=== PATIENT | male | born 1945 | race Caucasian/White ===

== ENCOUNTER 2016-07-31 23:00 | Emergency (ER) | payer MEDICARE, BC ==
[2016-08-01 04:51] LABS: ASCORBIC ACID (UR NOT ORDER) 20 (NEG); BILIRUBIN, URINE NEGATIVE (NEG); ER URINALYSIS TAT 0 Hrs 22 Mins; KETONE, URINE TRACE MG/DL (NEG); LEUKOCYTE ESTERASE(NOT OR NEG (NEG); NITRITE (URINE) NEG (NEG); WBC (NOT ORDERED) (RFLEX) 1 (0-5)
[2016-08-01 04:52] LABS: BASOPHILS 0.2 %; BASOPHILS ABSOLUTE 0.02 10/3/uL (0.0-0.16); EOSINOPHILS 0.2 %; EOSINOPHILS ABSOLUTE 0.02 10/3/uL (0.0-0.53); HEMATOCRIT 40.9 % (40.0-51.0); IMMATURE GRANULOCYTES 0.3 %; IMMATURE GRANULOCYTES ABSOLUTE 0.03 10/3/uL (0.0-0.11); LYMPHOCYTES 12.8 %; LYMPHOCYTES ABSOLUTE 1.34 10/3/uL (0.67-4.30); MEAN CORPUS HGB CONC 34.2 g/dL (32.0-36.0); MEAN CORPUSCULAR HEMOGLOB 30.2 pg (26.0-34.0); MEAN CORPUSCULAR VOLUME 88.1 fL (80-100); MEAN PLATELET VOLUME 11.2 fL (9.2-13.0); MONOCYTES 5.1 %; MONOCYTES ABSOLUTE 0.53 10/3/uL (0.21-1.20); NEUTROPHILS 81.4 %; NEUTROPHILS ABSOLUTE 8.49 10/3/uL (2.02-8.40); PLATELET COUNT 231 10/3/uL (150-400); RBC DISTRIBUTION WIDTH 12.9 % (12.0-16.0); RED CELL COUNT 4.64 10/6/uL (4.7-6.1); WHITE BLOOD CELLS 10.4 10/3/uL (4.5-10.5)
[2016-08-01 04:58] LABS: ER CBC TAT 0 Hrs 08 Mins; MANUAL DIFF NO %
[2016-08-01 05:05] LABS: CHLORIDE, SERUM 103 MMOL/L (96-112); CO2 (CARBON DIOXIDE) 24 MMOL/L (24-34); CREATININE 1.25 MG/DL (0.70-1.30); GFR AFRICAN AMERICAN 67 ML/MIN (>=60); GFR NON AFRICAN AMERICAN 58 ML/MIN (>=60); POTASSIUM, SERUM 4.3 MMOL/L (3.5-5.3); SODIUM, SERUM 139 MMOL/L (135-148)
[2016-08-01 05:06] LABS: BUN (BLOOD UREA NITROGEN) 28 MG/DL (6-23); CALCIUM, SERUM 9.1 MG/DL (8.5-10.4); GLUCOSE, SERUM 155 MG/DL (60-99)
[2016-09-11] MEDS ORDERED: PRAVAC PO (13:23)
[2016-09-11] MEDS ORDERED: Z300 PO (13:24)
[2016-09-11] MEDS ORDERED: ALLEGRA180 PO (13:40)
[2016-09-11] MEDS ORDERED: FISH-EPA1000 MG PO (13:40)
[2016-09-11] MEDS ORDERED: NASACORTAQ NAS (13:40)
[2017-02-08] MEDS ORDERED: MULTIPLE VIT PO (08:17)
== END 2016-08-01 06:21 | disposition home or self-care (01) ==
LOC: ER 23:00
PROVIDERS: Nurse Practitioner Acute Care
PROC: 0T2BX0Z Change Drainage Device in Bladder, External Approach (ICD-10-PCS; principal; 2016-07-31)
DX: R33.9 Retention of urine, unspecified (principal)
CPT/HCPCS: 80048; 81001; 85025; 99283

== ENCOUNTER 2016-09-13 09:14 | Inpatient (IN) | payer MEDICARE, BC ==
[2016-09-11 15:26] LABS: BASOPHILS 0.2 %; BASOPHILS ABSOLUTE 0.02 10/3/uL (0.0-0.16); EOSINOPHILS 3.3 %; EOSINOPHILS ABSOLUTE 0.28 10/3/uL (0.0-0.53); HEMATOCRIT 41.4 % (40.0-51.0); HEMOGLOBIN 14.1 g/dL (13.6-17.8); IMMATURE GRANULOCYTES 0.6 %; IMMATURE GRANULOCYTES ABSOLUTE 0.05 10/3/uL (0.0-0.11); LYMPHOCYTES 26.1 %; LYMPHOCYTES ABSOLUTE 2.23 10/3/uL (0.67-4.30); MEAN CORPUS HGB CONC 34.1 g/dL (32.0-36.0); MEAN CORPUSCULAR HEMOGLOB 30.1 pg (26.0-34.0); MEAN CORPUSCULAR VOLUME 88.3 fL (80-100); MEAN PLATELET VOLUME 12.2 fL (9.2-13.0); MONOCYTES 6.9 %; MONOCYTES ABSOLUTE 0.59 10/3/uL (0.21-1.20); NEUTROPHILS 62.9 %; NEUTROPHILS ABSOLUTE 5.37 10/3/uL (2.02-8.40); PLATELET COUNT 213 10/3/uL (150-400); RBC DISTRIBUTION WIDTH 13.6 % (12.0-16.0); RED CELL COUNT 4.69 10/6/uL (4.7-6.1); WHITE BLOOD CELLS 8.5 10/3/uL (4.5-10.5)
[2016-09-11 15:27] LABS: MANUAL DIFF NO %
[2016-09-11 15:37] LABS: INTERNATIONAL NORMAL RATI 1.1 UNITS (-); PARTIAL THROMBO TIME 29.8 SEC (22.5-37.2); PROTIME (NOT ORD) 13.6 SEC (12.0-14.5)
[2016-09-11 15:38] LABS: CALCIUM, SERUM 9.1 MG/DL (8.5-10.4); CHLORIDE, SERUM 106 MMOL/L (96-112); GFR AFRICAN AMERICAN 39 ML/MIN (>=60); GFR NON AFRICAN AMERICAN 34 ML/MIN (>=60); GLUCOSE, SERUM 126 MG/DL (60-99); POTASSIUM, SERUM 4.2 MMOL/L (3.5-5.3); SODIUM, SERUM 142 MMOL/L (135-148)
[2016-09-11 15:39] LABS: BUN (BLOOD UREA NITROGEN) 24 MG/DL (6-23); CO2 (CARBON DIOXIDE) 30 MMOL/L (24-34); CREATININE 1.95 MG/DL (0.70-1.30)
--- NOTE | ~2016-09-13 | OP ---
Record Of Operation [facility] [address] [place]. [address] NAME: STEPHANIE RODRIGUEZ : 47 STATUS : ADM IN PAT#: [id number] AGE: 71 ADM/REG DATE : 09/13/16 MR#: [id number] REPORT SERV DATE: 09/13/16 DICTATED BY: HECTOR WINCHESTER DATE: 09/13/16 REPORT STATUS : Draft TRANSCRIBED BY: MODL DATE: 09/13/16 DATE OF PROCEDURE: 09/13/2016 PREOPERATIVE DIAGNOSES: Urinary retention and massive BPH. POSTOPERATIVE DIAGNOSES: Urinary retention and massive BPH. PROCEDURES: Laparoscopic robot-assisted simple prostatectomy. SURGEON: Hector Winchester M.D. DOUGHNUT BATTER MIXER: Johnnie Shah. ANESTHESIA: General and local. ESTIMATED BLOOD LOSS: 150 mL. FLUID REPLACEMENT: 3 L of crystalloid. DRAINS: 15 mm Jose drain in the prevesical space and a 24-Maori three-way Winchester catheter with 45 mL of sterile water inflating the catheter balloon and connected to normal saline continuous bladder irrigation. INDICATIONS: A 71-year-old male with massive BPH and urinary retention, failing multiple voiding trials. FINDINGS: Enlarged prostate with at least two abscesses/purulences. TECHNIQUE: The patient was identified, brought to the operating room, administered general anesthetic agent by the Anesthesia Service, and intubated. He was positioned in dorsal lithotomy position. His Winchester catheter removed, and the entire lower abdomen had been clipped and then the entire abdomen, penis, groin, scrotum, and perineum were prepped and draped in the usual sterile fashion. All laparoscopic port sites were first infiltrated with 0.5% Marcaine plain. A 3 cm skin incision was made above the umbilicus and carried down through the subcutaneous tissue and the rectus fascia. Holding sutures were placed in the rectus fascia, and the fascia was elevated. It was incised transversely with an 11- blade scalpel. The underlying peritoneum was identified and opened sharply. A balloon trocar was placed into the peritoneal space, and a pneumoperitoneum was created by insufflating carbon dioxide. The abdominal pressure was then raised to 15 mmHg, and the patient was placed in steep Trendelenburg. Three robot arm ports and two surgical supply assistant ports were placed under direct vision. Once the ports were in position, da Dina robot was brought to the table and mated to the ports. The patient was noted to have bilateral indirect and a left direct inguinal hernia. I had to reduce the hernia sac on the left side. This was done with sharp dissection. I then clipped the direct sac with locking clips. The sigmoid colon was dissected off the lateral pelvic side wall. Record Of Operation [facility] [address] [facility] [place]. [id number] NAME: STEPHANIE RODRIGUEZ : 47 STATUS : ADM IN PAT#: [id number] AGE: 71 ADM/REG DATE : 09/13/16 MR#: [id number] REPORT SERV DATE: 09/13/16 DICTATED BY: HECTOR WINCHESTER DATE: 09/13/16 REPORT STATUS : Draft TRANSCRIBED BY: MAGDALENA DATE: 09/13/16 The median umbilical ligaments and urachus were divided near the umbilicus, and swept out in the space of Retzius. The perineum was opened just lateral to the median umbilical ligaments on each side all the way to the vasa deferentia bilaterally. An anterior cystotomy was made. A 16-Maori Winchester catheter was then passed in the bladder. The anterior cystotomy was made. The bladder was opened and holding sutures were placed in the cut edges of the bladder. I exposed the large intravesical prostate, and I observed the ureteral orifices. I then turned the Bovie cautery settings up high on the cutting scissors and scored the urothelium circumferentially around the bladder neck being careful to avoid the ureteral orifices. I then sharply dissected down to the capsule of the prostate. I then mobilized the adenoma circumferentially. Anteriorly on both the left and right side, I countered some cysts that contains very purulent-type material. This was copiously irrigated with saline. I used holding suture on the adenoma and extended my dissection from the intravesical adenoma all the way down towards the apex of the prostate. I then came across the urethra and delivered the specimen out. Several smaller adenomatous-type specimens were removed from inside the prostatic fossa. These were all placed into a specimen retrieval bag and held for later retrieval. I lowered the abdominal pressure down to 7 mmHg and irrigated the prostatic fossa copiously. I placed a muduom-yl-hswfe 3-0 PDS sutures along the ventral side of the anterior capsule of the prostate. This was for prophylactic hemostasis. I also placed a mbvafw-lm-rvdva 3-0 PDS near the posterior pedicle at the 7 o'clock position on the left side. The right side did not have any bleeding. Once fastidious hemostasis was achieved, I irrigated the fossa once again and placed a 24-Maori three-way Winchester catheter into the prostatic fossa. Initially, I placed 15 mL of sterile water into the catheter balloon, later filled with a total of 45 mL of sterile water. The bladder was irrigated copiously and sucked dry. I then closed the urothelium with running 3-0 V-Loc and closed the detrusor layer with a running 2-0 V-Loc. When completed, I filled the bladder with 240 mL of saline. It held without extravasation. I then drained the bladder connected to normal saline continuous for bladder irrigation. The instrument was taken out of the robot arm port and a 15 mm Jose drain was placed through that port, left in the prevesical space. I then undocked the da Dina robot, transferred the string of the specimen bag out through the umbilical port. The surgical supply assistant 12 mm port was removed and the fascia was closed with a Cornelius-Alfredo endoscopic closure system. The patient was taken out of Trendelenburg. All other ports were removed under low pressure. No port site bleeding was noted. I extended my transverse incision the fascia about 1 cm each direction and delivered the specimen out through the wound. I closed the fascia with wyajej-kf-hblef 0 Vicryl sutures. The subcutaneous tissue of all ports were irrigated and closed with 3-0 Vicryl. The skin of all ports closed with 4-0 Monocryl. Dressings were applied. The catheter was secured. The patient was awakened and taken to recovery unit in stable and satisfactory condition. Record Of Operation [facility] [address] [place]. [address] NAME: STEPHANIE RODRIGUEZ : 47 STATUS : ADM IN PAT#: [id number] AGE: 71 ADM/REG DATE : 09/13/16 MR#: [id number] REPORT SERV DATE: 09/13/16 DICTATED BY: HECTOR WINCHESTER DATE: 09/13/16 REPORT STATUS : Draft TRANSCRIBED BY: MODL DATE: 09/13/16 PF/MAGDALENA Hector Winchester M.D. / [id number] CC: Hector Winchester M.D.
--- NOTE | ~2016-09-13 | HP ---
History And Physical [address] [place]. [address] NAME: STEPHANIE MATTHEWS : 47 STATUS : PRE IN [facility]#: [id number] AGE: 71 ADM/REG DATE : MR#: [id number] REPORT SERV DATE: 09/12/16 DICTATED BY: HECTOR WINCHESTER DATE: 09/12/16 REPORT STATUS : Draft TRANSCRIBED BY: MODL DATE: 09/12/16 DATE OF ADMISSION: 09/13/2016 CHIEF COMPLAINT: Urinary retention. HISTORY OF PRESENT ILLNESS: Mr. Matthews is a 71-year-old white male who has had urinary retention for approximately two months. He had a long history of BPH that culminated in his retention. He has been treated with a Winchester catheter and has failed multiple voiding trials. MRI of the prostate previously revealed a gland measuring 160 mL. He has had numerous biopsies of the prostate, which were benign. He has consented to undergo a laparoscopic robot-assisted simple prostatectomy. He will be admitted after that procedure. The patient states he is sexually active to a certain degree. PAST MEDICAL HISTORY: Includes a renal cell carcinoma and BPH. PAST SURGICAL HISTORY: Left radical nephrectomy, tonsillectomy, eye surgery, and skin lesions removed. MEDICATIONS: Allopurinol, Kendal, pravastatin, and Nasacort. ALLERGIES: NO KNOWN DRUG ALLERGIES. SOCIAL HISTORY: Negative for tobacco use. He reports moderate alcohol use. REVIEW OF SYSTEMS: See nursing questionnaire. PHYSICAL EXAMINATION: GENERAL: Shows a well-developed, well-nourished white male in no acute distress. HEENT: Revealed he has a certain amount of anxiety. His sclerae are anicteric. NECK: Supple. LUNGS: Clear. HEART: Regular rate and rhythm. ABDOMEN: Soft and nontender. : Penis has a catheter in place. Testes descended and nontender. Prostate is large and smooth. No nodules. LOWER EXTREMITIES: No deformities. IMPRESSION: 1. Urinary retention secondary to massive benign prostatic hyperplasia. 2. Chronic kidney disease with a history of renal cell carcinoma, status post left nephrectomy. PLAN: Laparoscopic robot-assisted simple prostatectomy. Potential complications of bleeding, infection, urinary incontinence, bladder neck obstruction, loss of ejaculate, History And Physical [address] [place]. [address] NAME: STEPHANIE MATTHEWS : 47 STATUS : PRE IN PAT#: [id number] AGE: 71 ADM/REG DATE : MR#: [id number] REPORT SERV DATE: 09/12/16 DICTATED BY: HECTOR WINCHESTER DATE: 09/12/16 REPORT STATUS : Draft TRANSCRIBED BY: MODL DATE: 09/12/16 erectile dysfunction, and injury to adjacent structures such as bladder, ureters, rectum, colon, intestine, and nerves all have been explained to the patient. He both manually and verbally consents to proceed. PF/MAGDALENA Hector Winchester M.D. / [id number] CC: Amelia Perez M.D.
[~2016-09-13 09:14] MED LIST: ALLEGRA180 PO; FISH-EPA1000 MG PO; NASACORTAQ NAS; PRAVAC PO; Z300 PO
[2016-09-13 10:59] LABS: CALCIUM, SERUM 9.4 MG/DL (8.5-10.4); CHLORIDE, SERUM 106 MMOL/L (96-112); CO2 (CARBON DIOXIDE) 27 MMOL/L (24-34); GFR AFRICAN AMERICAN 76 ML/MIN (>=60); GFR NON AFRICAN AMERICAN 65 ML/MIN (>=60); GLUCOSE, SERUM 109 MG/DL (60-99); POTASSIUM, SERUM 4.2 MMOL/L (3.5-5.3); SODIUM, SERUM 140 MMOL/L (135-148)
[2016-09-13 11:00] LABS: BUN (BLOOD UREA NITROGEN) 14 MG/DL (6-23); CREATININE 1.13 MG/DL (0.70-1.30)
[2016-09-14 06:49] LABS: HEMATOCRIT 38.8 % (40.0-51.0); HEMOGLOBIN 13.3 g/dL (13.6-17.8)
[2016-09-14 06:55] LABS: BUN (BLOOD UREA NITROGEN) 11 MG/DL (6-23); CALCIUM, SERUM 8.9 MG/DL (8.5-10.4); CHLORIDE, SERUM 104 MMOL/L (96-112); CO2 (CARBON DIOXIDE) 27 MMOL/L (24-34); GFR AFRICAN AMERICAN 71 ML/MIN (>=60); GFR NON AFRICAN AMERICAN 61 ML/MIN (>=60); GLUCOSE, SERUM 117 MG/DL (60-99); POTASSIUM, SERUM 4.2 MMOL/L (3.5-5.3); SODIUM, SERUM 140 MMOL/L (135-148)
[2016-09-14] MEDS ORDERED: NORCO1 TA1 PO (09:39)
[2016-09-15] MEDS ORDERED: NORCO1 TA1 PO (13:36)
[2017-02-08] MEDS ORDERED: MULTIPLE VIT PO (08:17)
== END 2016-09-15 14:47 | disposition home or self-care (01) | DRG 708 ==
LOC: SDC/OF 09:14 → PACU 16:08 → 4SO 18:22
PROVIDERS: Urology
PROC: 8E0W4CZ Robotic Assisted Procedure of Trunk Region, Percutaneous Endoscopic Approach (ICD-10-PCS; principal; 2016-09-13 11:30)
PROC: 0VT04ZZ Resection of Prostate, Percutaneous Endoscopic Approach (ICD-10-PCS; principal; 2016-09-13 11:30)
DX: N40.1 Benign prostatic hyperplasia with lower urinary tract symptoms (principal); N41.2 Abscess of prostate; R33.8 Other retention of urine; K40.20 Bilateral inguinal hernia, without obstruction or gangrene, not specified as recurrent; Z85.528 Personal history of other malignant neoplasm of kidney; Z90.5 Acquired absence of kidney; Z79.51 Long term (current) use of inhaled steroids; F41.9 Anxiety disorder, unspecified; N18.9 Chronic kidney disease, unspecified; M10.9 Gout, unspecified; Z87.891 Personal history of nicotine dependence; E78.5 Hyperlipidemia, unspecified
CPT/HCPCS: 80048; 83735; 85014; 85018; 85025; 85610; 85730; 88307; 93005; A9270-GY; J0690; J1170; J1580; J2250; J2405; J2710; J3010